=== PATIENT | male | born 1960 | race Caucasian/White ===

== ENCOUNTER 2019-08-17 10:16 | Observation (INO) ==
[2019-08-17] MEDS ORDERED: IOPAMIDOL 100 ML BOTTLE IV ONE (10:17)
--- NOTE | 2019-08-17 10:36 | Emergency Department Note ---
Neuro HPI - General Chief Complaint: Neuro Symptoms/Deficit Stated Complaint: vision change and memory problem Time Seen by Provider: 08/17/19 10:35 Source: patient Mode of arrival: ambulatory Limitations: no limitations - History of Present Illness HPI Narrative: Patient arrives by private car brought by his significant other December. He describes at 9:00 having a kaleidoscope type of vision and she noted slurred speech. He called and said something was wrong. 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 Also had mentioned to nursing staff a headache. In the emergency room blood sugar 184 (no history of diabetes), slow speech. No focal deficits noted. He describe double vision. All though his light reflex was symmetric. Code stroke called at 10:33 AM. On Anticoagulants: No - Related Data Home Medications: Home Medications Medication Instructions Recorded Confirmed Diltiazem [Cardizem] 0 mg PO DAILY 08/17/19 08/17/19 Pravastatin [Pravachol] 40 mg PO DAILY 08/17/19 08/17/19 Allergies/Adverse Reactions: Allergies Allergy/AdvReac Type Severity Reaction Status Date / Time Penicillins Allergy Severe Difficulty Verified 05/03/19 10:08 Breathing Past Medical History - Past Medical History Medical history: Reports: arthritis, hypertension, kidney stones - Social History smoking status: Never smoker Physical Exam Limitations: no limitations General appearance: alert, in no apparent distress Head: atraumatic, normocephalic Eye: Present: normal appearance, PERRL, EOMI. Absent: scleral icterus, conjunctival injection ENT: Present: normal oropharynx, mucous membranes moist Neck: Present: trachea midline. Absent: lymphadenopathy, thyromegaly Chest: Present: symmetric chest wall rise Respiratory: Present: normal lung sounds bilaterally. Absent: respiratory distress, wheezes, stridor, accessory muscle use, prolonged expiratory phase Cardiovascular: Present: regular rate, normal rhythm. Absent: systolic murmur, diastolic murmur Abdominal: Present: soft. Absent: distention, tenderness, guarding, rebound, rigidity, organomegaly, mass Extremities: Absent: pedal edema, pretibial edema, calf tenderness Back: Absent: CVA tenderness (R), CVA tenderness (L), spinous process tenderness Neurological: Present: alert, oriented X3 Patient oriented to: Present: person, place, time Speech: Present: fluid speech, slurred, other (Initially was slow and slurred but this improved and 12 minutes after he came back from CT scan and seemed to actually resolve later.) Cranial nerves: EOM function (II, III, IV, ): Normal, facial sensation (V): Normal, tongue deviation (XII): Normal Motor strength - LUE: 5/5 Motor strength - RUE: 5/5 Motor strength - LLE: 5/5 Motor strength - RLE: 5/5 Sensory exam upper extremity: Normal: light touch, pin prick Sensory exam lower extremity: Normal: light touch, pin prick Coma Scale Eye Opening: Spontaneous Coma Scale Motor Response: Obeys Commands Coma Scale Verbal Response: Oriented Coma Scale Total: 15 Psychiatric: Present: normal affect, normal mood Skin: Present: warm, dry Course Vital Signs Temperature 96.9 F L 08/17/19 10:21 Respiratory Rate 20 08/17/19 10:21 Blood Pressure 147/110 08/17/19 10:21 Pulse Oximetry (%) 100 08/17/19 10:21 Temperature 96.9 F L 08/17/19 10:21 Pulse Rate 65 08/17/19 11:02 Respiratory Rate 13 08/17/19 11:46 Blood Pressure 130/88 08/17/19 11:46 Pulse Oximetry (%) 100 08/17/19 11:02 Neuro Symptoms/Deficit - MDM Narrative Medical decision making narrative: 10:33 AM - headed to CT for initial code stroke protocol. Blood sugar 184. INR was 1.0. 10:41 AM - EKG was normal sinus rhythm with probable LVH. Had a few bigeminal PVC runs. 10:50 AM - I spoke with Dr. Glass, stroke radiologist, who agrees with CT Callie of the head neck and that is not a TPA candidate and that he should have the following interventions: If meets criteria admission and MRI, echo. Clopidogrel 300 mg loading dose followed by daily 75 mg for 3 weeks. Also on aspirin 81 mg daily. After 3 weeks stop clopidogrel/Plavix and continue the aspirin. 11:30 AM - at approximately or around this time patient's symptoms seem to completely improve or resolve and he felt well. ABCD 2 score is 4 based on age, elevated blood pressure, speech, and duration of symptoms which warrants hospital stay. Patient is willing. 12:05 PM approximately - spoke with Dr. Santacruz who is willing to accept this pa tient if MRI is available which apparently it has been confirmed. - Lab Data Lab results reviewed: Yes I reviewed the patient's lab results. Result diagrams: 08/17/19 10:45 08/17/19 10:45 Lab Results 08/17/19 08/17/19 08/17/19 Range/Units 10:45 10:45 10:45 WBC 6.1 (4.5-11.0) K/mcL RBC 4.80 (4.50-5.90) M/mcL Hgb 14.3 (13.5-16.5) g/dL Hct 43.2 (41.0-55.0) % POC Hct 42.0 (41.0-55.0) % MCV 90.0 (80.0-100.0) fL MCH 29.8 (26.0-34.0) pg MCHC 33.1 (31.0-36.0) g/dL RDW 12.9 (11.5-14.5) % Plt Count 212 (140-440) K/mcL MPV 8.1 (7.4-10.4) fL Gran % 53.1 (38.0-78.0) % Lymph % (Auto) 31.9 (15.5-49.0) % [place] % (Auto) 7.4 (1.0-12.0) % Eos % (Auto) 6.9 (0.0-7.0) % Baso % (Auto) 0.7 (0.0-2.0) % Gran # 3.2 (1.8-8.0) K/mcL Lymph # (Auto) 2.0 (1.5-4.8) K/mcL [place] # (Auto) 0.5 (0.1-0.9) K/mcL Eos # (Auto) 0.4 (0.0-0.7) K/mcL Baso # (Auto) 0 (0.0-0.3) K/mcL POC PT 11.8 L (11.9-14.5) sec POC INR 1.0 (0.9-1.2) APTT 29 (20-37) sec POC Sodium 140 (133-145) mmol/L Sodium 141 (133-145) mmol/L POC Potassium 3.6 (3.3-5.1) mmol/L Potassium 3.9 (3.3-5.1) mmol/L POC Chloride 104 (96-108) mmol/L Chloride 104 (96-108) mmol/L Carbon Dioxide 22 (22-30) mmol/L POC Total CO2 24 (22-30) mmol/L Anion Gap 15.0 (8-16) POC BUN 11 (8-23) mg/dl BUN 12 (8-23) mg/dl Creatinine 1.2 (0.7-1.2) mg/dl POC Creatinine 1.2 (0.7-1.2) mg/dl GFR Calculation 65 Glucose 152 H (70-105) mg/dL POC Glucose 148 H (70-105) mg/dL Calcium 9.3 (8.6-10.4) mg/dl POC WB Ioniz Calcium 1.18 (1.16-1.32) mmol/L Total Bilirubin 0.5 (0.0-1.0) mg/dL AST 22 (0-37) U/l ALT 30 (0-40) U/l Alkaline Phosphatase 82 (39-117) U/L Troponin T (0-0.03) ng/ml Total Protein 7.4 (5.9-8.4) gm/dL Albumin 4.3 (3.2-5.2) gm/dL Globulin 3.1 (2.2-3.7) gm/dL Albumin/Globulin Ratio 1.4 (1.0-2.3) 08/17/19 Range/Units 10:45 WBC (4.5-11.0) K/mcL RBC (4.50-5.90) M/mcL Hgb (13.5-16.5) g/dL Hct (41.0-55.0) % POC Hct (41.0-55.0) % MCV (80.0-100.0) fL MCH (26.0-34.0) pg MCHC (31.0-36.0) g/dL RDW (11.5-14.5) % Plt Count (140-440) K/mcL MPV (7.4-10.4) fL Gran % (38.0-78.0) % Lymph % (Auto) (15.5-49.0) % [place] % (Auto) (1.0-12.0) % Eos % (Auto) (0.0-7.0) % Baso % (Auto) (0.0-2.0) % Gran # (1.8-8.0) K/mcL Lymph # (Auto) (1.5-4.8) K/mcL [place] # (Auto) (0.1-0.9) K/mcL Eos # (Auto) (0.0-0.7) K/mcL Baso # (Auto) (0.0-0.3) K/mcL POC PT (11.9-14.5) sec POC INR (0.9-1.2) APTT (20-37) sec POC Sodium (133-145) mmol/L Sodium (133-145) mmol/L POC Potassium (3.3-5.1) mmol/L Potassium (3.3-5.1) mmol/L POC Chloride (96-108) mmol/L Chloride (96-108) mmol/L Carbon Dioxide (22-30) mmol/L POC Total CO2 (22-30) mmol/L Anion Gap (8-16) POC BUN (8-23) mg/dl BUN (8-23) mg/dl Creatinine (0.7-1.2) mg/dl POC Creatinine (0.7-1.2) mg/dl GFR Calculation Glucose (70-105) mg/dL POC Glucose (70-105) mg/dL Calcium (8.6-10.4) mg/dl POC WB Ioniz Calcium (1.16-1.32) mmol/L Total Bilirubin (0.0-1.0) mg/dL AST (0-37) U/l ALT (0-40) U/l Alkaline Phosphatase (39-117) U/L Troponin T < 0.01 (0-0.03) ng/ml Total Protein (5.9-8.4) gm/dL Albumin (3.2-5.2) gm/dL Globulin (2.2-3.7) gm/dL Albumin/Globulin Ratio (1.0-2.3) - Radiology Data Radiology results reviewed: Yes I reviewed the patient's radiology results. - EKG Data EKG attestation: Yes There are no EKG findings of acute coronary syndrome, Yes This EKG will be read by conveyor tender Disposition Pt seen by TILT TRAY DRIVER/PA only: No Clinical Impression: TIA (transient ischemic attack), LVH (left ventricular hypertrophy), Hypertension, essential, History of DVT (deep vein thrombosis) Hyperlipidemia Qualifiers: Hyperlipidemia type: unspecified Qualified Code(s): E78.5 - Hyperlipidemia, unspecified Summary: See medical decision-making above. Being admitted for additional work-up of his TIA and observation. Disposition: Xfer As Inpt ([facility]) Condition: Fair Referrals: Antonio Collier MD [Primary Care Provider] -
[2019-08-17] MEDS ORDERED: ALTEPLASE 100 MG/100 ML VIAL IV ONE (10:37)
[2019-08-17 10:54] LABS: POC Blood Urea Nitrogen 11 mg/dl (8-23); POC CO2 24 mmol/L (22-30); POC Calcium, Ionized 1.18 mmol/L (1.16-1.32); POC Chloride 104 mmol/L (96-108); POC Creatinine 1.2 mg/dl (0.7-1.2); POC Glucose, Random 148 mg/dL (70-105); POC Potassium 3.6 mmol/L (3.3-5.1); POC Sodium 140 mmol/L (133-145)
[2019-08-17 10:55] LABS: POC Pro Time 11.8 sec (11.9-14.5)
[2019-08-17] MEDS ORDERED: CLOPIDOGREL 300 MG TABLET PO ONE (10:56)
[2019-08-17] MEDS ORDERED: ASPIRIN 81 MG TAB.CHEW CHEWED ONE (10:57)
[2019-08-17 11:16] LABS: Basophils # (Auto) 0 K/mcL (0.0-0.3); Basophils % (Auto) 0.7 % (0.0-2.0); Eosinophils # (Auto) 0.4 K/mcL (0.0-0.7); Eosinophils % (Auto) 6.9 % (0.0-7.0); Granulocytes % (Auto) 53.1 % (38.0-78.0); Hematocrit 43.2 % (41.0-55.0); Hemoglobin 14.3 g/dL (13.5-16.5); Lymphocytes % (Auto) 31.9 % (15.5-49.0); Mean Corpuscular HGB Conc 33.1 g/dL (31.0-36.0); Mean Platelet Volume 8.1 fL (7.4-10.4); Monocytes # (Auto) 0.5 K/mcL (0.1-0.9); Monocytes % (Auto) 7.4 % (1.0-12.0); Platelet Count 212 K/mcL (140-440); Red Cell Distribution Width 12.9 % (11.5-14.5); WBC 6.1 K/mcL (4.5-11.0)
[2019-08-17 11:36] LABS: ALT/SGPT 30 U/l (0-40); AST/SGOT 22 U/l (0-37); Albumin 4.3 gm/dL (3.2-5.2); Albumin/Globulin Ratio 1.4 (1.0-2.3); Alkaline Phosphatase 82 U/L (39-117); Bilirubin,Total 0.5 mg/dL (0.0-1.0); Blood Urea Nitrogen 12 mg/dl (8-23); Calcium 9.3 mg/dl (8.6-10.4); Carbon Dioxide 22 mmol/L (22-30); Chloride 104 mmol/L (96-108); Globulin 3.1 gm/dL (2.2-3.7); Glomerular Filtration Rate 65; Glucose 152 mg/dL (70-105)
--- NOTE | 2019-08-17 12:21 | Internal Med History&Physical ---
Medical - H&P: [facility] Patient information: Note initiated : 08/17/19 at 12:21 pm Service Date, if different from initiated Date: [] Patient: Nii Holloway a 59 y/o M admitted on for vision change and memory problem. Chief Complaint: [] Chief complaint: Sudden onset vision change/difficulty speaking History of present illness: Mr. Holloway is a 59 year old M with a past history of hyperten diana/hyperlipidemia who was otherwise for his baseline state of health was in his pickup around 9 AM and he noticed sudden vision changes with abnormal field of vision which he describes as kaleidoscopic. He was unable to talk right and noticed weakness. Realizing something was wrong he called his and was brought in to the ER. He denies thunderclap headache. He endorses to similar episode of vision changes 3 days ago however he did not seek medical consultation. He has been symptom-free over the last 3 days. During this episode he denied lightheadedness chest pain neck pain but felt sensation of disequilibrium as if he was seasick. He denies associated fever, nausea, diarrhea, unilateral weakness or sensory changes. He further denies changes in medications, incontinence, recent spinal manipulation or heavy weightlifting. Initial work-up in the ER was unremarkable CT angiogram head neck along with CT head. Stroke neurology was consulted and patient was started on aspirin Plavix/statin. Hospitalist service was consulted for continuation of stroke work-up At the time of evaluation patient is accompanied with his December. He is able to answer most the question provide history. His symptoms have abated. He is back to near baseline from initial NIH score of 3->0 Review of systems A 10 point review of system was performed and is negative except was discussed above Medical - H&P: PM Medical history: Hypertension hyperlipidemia Pertinent family history: Premature coronary disease. 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 [place] Medical - H&P: Meds Home Medications Medication Instructions Recorded Confirmed Type Diltiazem [Cardizem] 120 mg PO DAILY 08/17/19 08/17/19 History Pravastatin [Pravachol] 40 mg PO DAILY 08/17/19 08/17/19 History Allergies Allergy/AdvReac Type Severity Reaction Status Date / Time Penicillins Allergy Severe Difficulty Verified 05/03/19 10:08 Breathing Medical - H&P: Exam - Constitutional Vitals: Temp Pulse Resp BP Pulse Ox 96.9 F L 65 13 130/88 100 08/17/19 10:21 08/17/19 11:02 08/17/19 11:46 08/17/19 11:46 08/17/19 11:02 General appearance: no acute distress Exam: Alert oriented Head normocephalic No facial asymmetry Oral cavity dry No ear nose discharge Neck no lymphadenopathy S1S2 regular, bradycardia Chest clear to auscultation Abdomen soft nontender Lower extremity no lymphedema Skin no suspicious lesion Psych alert cooperative neuro normal higher function, no facial droop, normal cranial nerves Symmetrical strength and sensation Medical - H&P: Reslt - Labs CBC & Chem 7: 08/17/19 10:45 08/18/19 04:20 Labs: Short CBC 08/17/19 Range/Units 10:45 WBC 6.1 (4.5-11.0) K/mcL Hgb 14.3 (13.5-16.5) g/dL Hct 43.2 (41.0-55.0) % Plt Count 212 (140-440) K/mcL BMP 08/17/19 10:45 Sodium 141 Potassium 3.9 Chloride 104 Carbon Dioxide 22 BUN 12 Creatinine 1.2 Glucose 152 H Calcium 9.3 Cardiac Enzymes 08/17/19 Range/Units 10:45 Troponin T < 0.01 (0-0.03) ng/ml Liver Function 08/17/19 Range/Units 10:45 Total Bilirubin 0.5 (0.0-1.0) mg/dL AST 22 (0-37) U/l ALT 30 (0-40) U/l Alkaline Phosphatase 82 (39-117) U/L Albumin 4.3 (3.2-5.2) gm/dL Medical - H&P: A/P (1) TIA (transient ischemic attack) Current visit: Yes Status: Acute * TIA with high probability posterior circulation ischemic CVA, MRI/echocardiogram/aspirin statin/Plavix as per neurologist. Telemetry monitoring/maintain permissive hypertension. Physical therapy * History of hypertension continue diltiazem. Maintain permissive hypertension for 24 hours * Hyperlipidemia continue statin * Full code * Prophylaxis heparin Plan * Observation admit * Stroke work-up-MRI/echo * Physical therapy * bowel protocol * Maintain permissive hypertension
[2019-08-17 12:48] LABS: Appearance,Urine CLEAR; Bilirubin,Urine NEG (NEG); Color,Urine STRAW; Culture Indicated,Urine NO; Glucose,Urine (UA) NEGATIVE (NEG); Ketones,Urine NEG (NEG); Leukocyte Esterase,Urine NEG /uL (NEG); Nitrate,Urine NEG (NEG); Protein,Urine NEG (NEG); Specific Gravity,Urine 1.043 (1.000-1.035); Urine Blood NEG mg/dL (<0.03); Urobilinogen,Urine NEG (NEG)
[2019-08-17] MEDS ORDERED: POTASSIUM CHLORIDE 20 MEQ PACKET PO PRN (12:50)
[2019-08-17] MEDS ORDERED: ACETAMINOPHEN 325 MG TABLET PO PRN (12:50)
[2019-08-17] MEDS ORDERED: POLYETHYLENE GLYCOL 3350 17 GM PACKET PO PRN (12:50)
[2019-08-17] MEDS ORDERED: BISACODYL 10 MG SUPP.RECT PR PRN (12:50)
[2019-08-17] MEDS ORDERED: ONDANSETRON 4 MG/2 ML VIAL IV PRN (12:50)
[2019-08-17] MEDS ORDERED: MAGNESIUM SULFATE 2 GM/50 ML BAG IV PRN (12:50)
[2019-08-17] MEDS ORDERED: ACETAMINOPHEN 650 MG/65 ML BOTTLE IV PRN (12:50)
[2019-08-17] MEDS ORDERED: ONDANSETRON 4 MG ODT TABLET SL PRN (12:50)
[2019-08-17] MEDS ORDERED: MELATONIN 3 MG TABLET PO PRN (12:50)
--- NOTE | 2019-08-17 15:45 | Cat Scan Report ---
CLINICAL INFORMATION: Code stroke COMPARISON: None. TECHNIQUE: 2.5 mm helical slices were obtained in the skull base to vertex. Following reconstruction, axial reformatted images were reviewed at bone and parenchymal windows. The exam was performed using radiation dose optimization techniques including, but not limited to, automated exposure control, adjustment of the mA and/or kV according to patient size and use of iterative reconstruction technique. FINDINGS: The ventricles, sulci, fissures, and cisterns are normal in size and configuration for age. No extra-axial fluid collections are identified. The cerebrum, brainstem and cerebellum are unremarkable. There is no evidence of hemorrhage, mass effect, or edema. Bone windows show no osseous abnormality. IMPRESSION: Normal head CT without contrast for age. Interpreted and Authenticated by: Adrian Kuhn 08/17/19
--- NOTE | 2019-08-17 15:52 | Cat Scan Report ---
CLINICAL INFORMATION: Visual changes and decreased memory. Evaluate for CVA COMPARISON: None. TECHNIQUE: 80 cc of Isovue-370 were injected intravenously , and using SmartPrep to maximize cerebral arterial opacification, 0.625 mm helical slices were obtained from the skull base through the cerebral vertex. Following reconstruction , sagittal, coronal and axial reformatted images were processed and reviewed at multiple windows and levels. 3D volume rendered and MIP images were acquired at a independent workstation. The exam was performed using radiation dose optimization techniques including, but not limited to, automated exposure control, adjustment of the mA and/or kV according to patient size and use of iterative reconstruction technique. FINDINGS: The intracranial internal carotid, vertebral, basilar, anterior, middle and posterior cerebral arteries and their branches are well-opacified and normal in contour and caliber without stenosis, occlusion or other abnormality. The superficial and deep cerebral veins and the venous sinuses are patent. IMPRESSION: Normal Interpreted and Authenticated by: Adrian Kuhn 08/17/19
--- NOTE | 2019-08-17 16:03 | Cat Scan Report ---
CLINICAL INFORMATION: Acute decreased vision and memory loss - evaluate for CVA COMPARISON: None. TECHNIQUE: 80 cc of Isovue-370 were injected intravenously, and using SmartPrep to maximize arterial opacification, 0.625 mm helical slices were obtained from the thoracic aortic arch through the [place]. Following reconstruction, 2.5mm sagittal, coronal and axial reformatted images were processed and reviewed at standard and bone algorithm/window. 3-D volume rendered, CPR and MIP images were processed using a [employer] work station.The exam was performed using radiation dose optimization techniques including, but not limited to, automated exposure control, adjustment of the mA and/or kV according to patient size and use of iterative reconstruction technique. FINDINGS: The thoracic aortic arch is normal in contour and caliber. Aortic branching is dimensional. The brachiocephalic, both subclavian, both vertebral, common, internal and external carotid arteries are widely patent. A 17 x 13 mm low-attenuation lesion dominates the mid/ inferior right thyroid lobe. There is also a 15 mm low-attenuation lesion either arising exophytically is posterior to the mid right thyroid lobe. Suggest thyroid ultrasound. Soft tissues and neck are otherwise normal. At C5-6 and C6-7, broad disc spur complexes result in moderate central canal and severe bilateral lateral recess /IV foraminal narrowing with impingement of the exiting C6 and C7 nerve roots. At C4-5, a left disc spur spur complex severely narrows the left lateral recess IV foraminal impinging the exiting left C5 nerve root. IMPRESSION: 1. Thoracic aortic arch, both subclavian, all carotid and vertebral arteries are widely patent. 2. 17 mm low-attenuation lesion in the inferior right thyroid lobe. 15 mm lesion either posterior to or arising exophytically from the mid right thyroid lobe. Suggest thyroid ultrasound. 3. Severe left C4-5 and bilateral C5-6 and C6-7 IV foraminal /lateral recess narrowing due to disc spur complexes and facet hypertrophy. Please correlate with upper extremity radiculopathy Interpreted and Authenticated by: Adrian Kuhn 08/17/19
[2019-08-17] MEDS: 0.9 % SODIUM CHLORIDE 10 ML SYRINGE IV SCH ×2 (18:08→21:07)
[2019-08-17] MEDS: MUPIROCIN OINT 2% 22GM NARES SCH (20:56)
[2019-08-17] MEDS: CYANOCOBALAMIN (VITAMIN B-12) 500 MCG TABLET PO SCH (20:57)
[2019-08-17] MEDS: HEPARIN 5,000 UNIT/ML VIAL SQ SCH (20:58)
[2019-08-17] MEDS ORDERED: SENNOSIDES/DOCUSATE SODIUM 1 TAB TABLET PO SCH (21:00)
[2019-08-17] MEDS ORDERED: ATORVASTATIN 20 MG TABLET PO SCH (21:00)
[2019-08-17] MEDS: DOCUSATE SODIUM 100 MG CAPSULE PO SCH (21:05)
[2019-08-18] MEDS: 0.9 % SODIUM CHLORIDE 10 ML SYRINGE IV SCH ×2 (04:03→15:22)
[2019-08-18 06:05] LABS: ALT/SGPT 26 U/l (0-40); AST/SGOT 20 U/l (0-37); Albumin 3.9 gm/dL (3.2-5.2); Albumin/Globulin Ratio 1.3 (1.0-2.3); Alkaline Phosphatase 78 U/L (39-117); Bilirubin,Direct < 0.2 mg/dL (0.0-0.3); Bilirubin,Total 0.4 mg/dL (0.0-1.0); Blood Urea Nitrogen 12 mg/dl (8-23); Calcium 9.2 mg/dl (8.6-10.4); Carbon Dioxide 25 mmol/L (22-30); Chloride 102 mmol/L (96-108); Globulin 2.9 gm/dL (2.2-3.7); Glomerular Filtration Rate 65; Glucose 106 mg/dL (70-105); Lactate Dehydrogenase 167 U/L (94-250); Phosphorous 2.9 mg/dL (2.7-4.5); Triglycerides 164 mg/dl (<150); Uric Acid 6.6 mg/dL (2.5-8.0)
[2019-08-18] MEDS: MUPIROCIN OINT 2% 22GM NARES SCH (08:10)
[2019-08-18] MEDS: CYANOCOBALAMIN (VITAMIN B-12) 500 MCG TABLET PO SCH (08:12)
[2019-08-18] MEDS: HEPARIN 5,000 UNIT/ML VIAL SQ SCH (08:13)
[2019-08-18] MEDS: DOCUSATE SODIUM 100 MG CAPSULE PO SCH (08:13)
[2019-08-18] MEDS ORDERED: FOLIC ACID 1 MG TABLET PO SCH (09:00)
[2019-08-18] MEDS ORDERED: CLOPIDOGREL 75 MG TABLET PO SCH (09:00)
[2019-08-18] MEDS ORDERED: THIAMINE 100 MG TABLET PO SCH (09:00)
--- NOTE | 2019-08-18 10:34 | Discharge Summary ---
<Fan Fine - Last Filed: 08/18/19 15:10> Medical - DS: Prov Patient information: Note initiated : 08/18/19 at 3:10 pm Service Date, if different from initiated Date: [] Patient: Nii Holloway 59 y/o M admitted on 08/17/19 for vision change and memory problem. Chief Complaint: [] Date of admission: 08/17/19 12:49 Primary care physician: Antonio Collier Consults: 08/17/19 Consult to Physician [CONS] Stat Comment: Consulting Provider: Edwin Singletary Reason For Exam: Physician to Consult Medical - DS: Meds - Discharge Medications Prescriptions: Aspirin [Pa Chewable Aspirin] 81 mg PO DAILY #30 tab.chew Prescription Printed Clopidogrel Bisulfate [Plavix] 75 mg PO DAILY #30 tab Prescription Printed Active and Home Medications: Home Medications Diltiazem [Cardizem] 120 mg PO DAILY 08/17/19 [History Confirmed 08/17/19 Last Taken 08/17/19] Pravastatin [Pravachol] 40 mg PO DAILY 08/17/19 [History Confirmed 08/17/19 Last Taken 08/16/19 21:00] Aspirin [Pa Chewable Aspirin] 81 mg PO DAILY #30 tab.chew 08/18/19 [Rx Last Taken Unknown] Clopidogrel Bisulfate [Plavix] 75 mg PO DAILY #30 tab 08/18/19 [Rx Last Taken Unknown] Medical - DS: Hosp Hospital Course: Discharge diagnosis * TIA versus posterior circulation ischemic CVA-negative neuroimaging during CT head/CT angiogram head neck. Echocardiogram no evidence of ASD or L AA/LV thrombus. No telemetry events including A. fib except for PVCs/intermittent bradycardia. Continue dual antiplatelet as per stroke neurologist recommendations to ER physician during tele-stroke consult. Patient will follow-up with neurology as outpatient in 2 weeks. Recommend follow-up with primary care physician for continued optimization of hypertension/primary conditions * History of hypertension continue home dose diltiazem. Follow-up with Dr. Collier primary care physician in 1 to 2 weeks * Hyperlipidemia continue statin Brief hospital course Mr. Holloway is a 59 year old M with a past history of hypertension/hyperlipidemia who was otherwise for his baseline state of health was in his pickup around 9 AM and he noticed sudden vision changes with abnormal field of vision which he describes as kaleidoscopic. He was unable to talk right and noticed weakness. Realizing something was wrong he called his and was brought in to the ER. He denies thunderclap headache. He endorses to similar episode of vision changes 3 days ago however he did not seek medical consultation. He has been symptom-free over the last 3 days. During this episode he denied lightheadedness chest pain neck pain but felt sensation of disequilibrium as if he was seasick. He denies associated fever, nausea, diarrhea, unilateral weakness or sensory changes. He further denies changes in medications, incontinence, recent spinal manipulation or heavy weightlifting. Initial work-up in the ER was unremarkable CT angiogram head neck along with CT head. Stroke neurology was consulted and patient was started on aspirin Plavix/statin. Hospitalist service was consulted for continuation of stroke work-up At the time of evaluation patient is accompanied with his December. He is able to answer most the question provide history. His symptoms have abated. He is back to near baseline from initial NIH score of 3->0 08/18-no overnight events. No concerns per staff. No further neurological changes or telemetry events except for occasional PVCs and bradycardic between 50 and 60s. Echocardiogram no evidence of ASD/LV or LA thrombus. Patient will be discharged following MRI results. Continue dual antiplatelet along with statin as per neurology recommendations. Schedule outpatient neurology follow- up on discharge in 1 to 2 weeks. MRI with no acute infarct. Noted mild atrophy and chronic ischemic changes. - Time Spent with Patient Total time spent providing and/or coordinating discharge services: Medical - DS: Exam - Constitutional Vitals: Vital Signs Temp Pulse Resp BP Pulse Ox 08/18/19 14:01 59 L 19 120/79 100 08/18/19 13:01 74 20 136/90 96 08/18/19 12:01 97.5 F 73 21 128/94 96 08/18/19 11:25 77 14 139/87 98 08/18/19 10:01 14 124/97 08/18/19 09:01 14 129/95 08/18/19 08:01 97.5 F 43 L 14 109/82 96 08/18/19 07:01 49 L 15 105/81 94 08/18/19 06:01 51 L 15 121/74 98 08/18/19 05:01 46 L 16 105/75 98 08/18/19 04:30 97.9 F 08/18/19 04:01 55 L 12 117/80 98 08/18/19 03:07 15 96 08/18/19 03:01 57 L 15 122/86 96 08/18/19 02:01 52 L 17 123/76 95 08/18/19 01:01 55 L 16 128/76 97 08/18/19 00:13 97.7 F 08/18/19 00:01 59 L 17 115/82 97 08/17/19 23:01 52 L 17 125/84 96 08/17/19 22:38 58 L 16 98 08/17/19 22:01 53 L 16 131/85 98 08/17/19 21:01 63 14 132/88 99 08/17/19 20:01 61 17 125/99 99 08/17/19 19:32 17 99 08/17/19 19:29 98.8 F 08/17/19 19:01 19 143/101 99 08/17/19 18:32 18 08/17/19 18:01 20 158/109 08/17/19 17:01 13 130/90 08/17/19 16:34 18 08/17/19 16:02 7 L 138/93 08/17/19 15:46 17 123/80 08/17/19 15:31 16 124/81 08/17/19 15:16 17 148/101 Intake and Output 08/18/19 08/18/19 08/18/19 05:59 13:59 21:59 Intake Total 50 240 Output Total 400 Balance -350 240 Intake: Oral 50 240 Output: Void Amount 400 Other: Meal Breakfast Percent of Meal Consumed 100% Feeding Ability Independent Urine Appearance Clear Urine Color Bright Yellow Medical - DS: Data Labs on day of discharge: Labs from last 24 hours 08/18/19 04:20 Sodium 139 Potassium 4.1 Chloride 102 Carbon Dioxide 25 Anion Gap 12.0 BUN 12 Creatinine 1.2 GFR Calculation 65 Glucose 106 H Uric Acid 6.6 Calcium 9.2 Phosphorus 2.9 Magnesium 2.1 Total Bilirubin 0.4 Direct Bilirubin < 0.2 GGT 57 AST 20 ALT 26 Alkaline Phosphatase 78 Lactate Dehydrogenase 167 Total Protein 6.8 Albumin 3.9 Globulin 2.9 Albumin/Globulin Ratio 1.3 Triglycerides 164 H Medical - DS: A/P - Patient/Caregiver Discharge Instructions Additional Instructions: Follow-up neurology in 1 to 2 weeks as outpatient Follow-up primary care physician Dr. Collier and 1 week Continue dual antiplatelets as per tele stroke neurologist recommendations along with statin Return to ER if vision changes/weakness or neurological changes noted Prescriptions: Aspirin [Pa Chewable Aspirin] 81 mg PO DAILY #30 tab.chew Prescription Printed Clopidogrel Bisulfate [Plavix] 75 mg PO DAILY #30 tab Prescription Printed - Follow up Plan Follow up with: Antonio Collier MD [Primary Care Provider] - Disposition: Home, Self-Care Care Plan Goals: This discharge packet is provided to you to help keep you informed about your care. We want to ensure you get everything you need when you go home. You will also be receiving a call from us in a few days to follow up with you and see how you are doing since your discharge. This gives us a chance to listen to any concerns you maybe experiencing since you were discharged or any additional needs you may have, as well as providing us feedback on your care experience. We strive to always provide excellent care and thank you for your feedback and for choosing [facility]. Prognosis: Fair <Edwin Singletary - Last Filed: 08/20/19 17:10> Medical - DS: Prov Patient information: Note initiated : 08/18/19 at 10:31 am Service Date, if different from initiated Date: [] Patient: Nii Holloway 59 y/o M admitted on 08/17/19 for vision change and memory problem. Chief Complaint: [] Date of admission: 08/17/19 12:49 Discharge date: 08/18/19 Primary care physician: Antonio Collier Consults: 08/17/19 Consult to Physician [CONS] Stat Comment: Consulting Provider: Edwin Singletary Reason For Exam: Physician to Consult Medical - DS: Meds - Discharge Medications Active and Home Medications: Home Medications Diltiazem [Cardizem] 120 mg PO DAILY 08/17/19 [History Confirmed 08/17/19 Last Taken 08/17/19] Pravastatin [Pravachol] 40 mg PO DAILY 08/17/19 [History Confirmed 08/17/19 Last Taken 08/16/19 21:00] Aspirin [Pa Chewable Aspirin] 81 mg PO DAILY #30 tab.chew 08/18/19 [Rx Last Taken Unknown] Clopidogrel Bisulfate [Plavix] 75 mg PO DAILY #30 tab 08/18/19 [Rx Last Taken Unknown] Medical - DS: Hosp Discharge diagnosis: . - Time Spent with Patient Total time spent providing and/or coordinating discharge services: Greater than 30 minutes Medical - DS: Exam - Constitutional Vitals: Vital Signs Temp Pulse Resp BP BP Pulse Ox 08/18/19 10:01 14 124/97 08/18/19 09:01 14 129/95 08/18/19 08:01 97.5 F 43 L 14 109/82 96 08/18/19 07:01 49 L 15 105/81 94 08/18/19 06:01 51 L 15 121/74 98 08/18/19 05:01 46 L 16 105/75 98 08/18/19 04:30 97.9 F 08/18/19 04:01 55 L 12 117/80 98 08/18/19 03:07 15 96 08/18/19 03:01 57 L 15 122/86 96 08/18/19 02:01 52 L 17 123/76 95 08/18/19 01:01 55 L 16 128/76 97 08/18/19 00:13 97.7 F 08/18/19 00:01 59 L 17 115/82 97 08/17/19 23:01 52 L 17 125/84 96 08/17/19 22:38 58 L 16 98 08/17/19 22:01 53 L 16 131/85 98 08/17/19 21:01 63 14 132/88 99 08/17/19 20:01 61 17 125/99 99 08/17/19 19:32 17 99 08/17/19 19:29 98.8 F 08/17/19 19:01 19 143/101 99 08/17/19 18:32 18 08/17/19 18:01 20 158/109 08/17/19 17:01 13 130/90 08/17/19 16:34 18 08/17/19 16:02 7 L 138/93 08/17/19 15:46 17 123/80 08/17/19 15:31 16 124/81 08/17/19 15:16 17 148/101 08/17/19 15:01 13 151/111 08/17/19 14:31 24 H 144/100 08/17/19 14:17 142/96 08/17/19 14:01 129/83 08/17/19 13:46 12 133/79 08/17/19 13:31 13 158/120 08/17/19 13:16 13 147/108 08/17/19 13:04 51 L 15 152/100 88 L 08/17/19 13:02 96.9 F L 64 17 141/96 98 08/17/19 12:49 96.9 F L 17 150/102 98 08/17/19 12:45 64 17 141/96 98 08/17/19 12:32 54 L 8 L 141/96 100 08/17/19 12:16 54 L 15 141/93 99 08/17/19 12:01 56 L 14 138/100 100 08/17/19 11:46 13 130/88 08/17/19 11:32 11 L 123/92 08/17/19 11:24 15 145/109 08/17/19 11:02 65 16 140/101 100 08/17/19 10:54 61 9 L 156/95 100 08/17/19 10:51 61 14 156/95 100 08/17/19 10:32 61 11 L 155/99 100 Intake and Output 08/17/19 08/18/19 08/18/19 21:59 05:59 13:59 Intake Total 360 50 240 Output Total 1250 400 Balance -890 -350 240 Intake: Oral 360 50 240 Output: Urine Catheter Amount 450 Void Amount 800 400 Other: Meal Dinner Breakfast Percent of Meal Consumed 100% 100% Feeding Ability Independent Urine Appearance Clear Clear Urine Color Bright Yellow Bright Yellow Urine Odor Normal Weight 204 lb 12.8 oz Medical - DS: Data Labs on day of discharge: Labs from last 24 hours 08/18/19 08/17/19 08/17/19 04:20 12:04 10:45 WBC RBC Hgb Hct POC Hct MCV MCH MCHC RDW Plt Count MPV Gran % Lymph % (Auto) [place] % (Auto) Eos % (Auto) Baso % (Auto) Gran # Lymph # (Auto) [place] # (Auto) Eos # (Auto) Baso # (Auto) ESR 14 POC PT POC INR APTT POC Sodium Sodium 139 POC Potassium Potassium 4.1 POC Chloride Chloride 102 Carbon Dioxide 25 POC Total CO2 Anion Gap 12.0 POC BUN BUN 12 Creatinine 1.2 POC Creatinine GFR Calculation 65 Glucose 106 H POC Glucose Uric Acid 6.6 Calcium 9.2 POC WB Ioniz Calcium Phosphorus 2.9 Magnesium 2.1 Total Bilirubin 0.4 Direct Bilirubin < 0.2 GGT 57 AST 20 ALT 26 Alkaline Phosphatase 78 Lactate Dehydrogenase 167 Troponin T Total Protein 6.8 Albumin 3.9 Globulin 2.9 Albumin/Globulin Ratio 1.3 Triglycerides 164 H Urine Color Straw Urine Appearance Clear Urine pH 8.0 Ur Specific [place] 1.043 H Urine Protein Neg Urine Glucose (UA) Negative Urine Ketones Neg Urine Occult Blood Neg Urine Nitrate Neg Urine Bilirubin Neg Urine Urobilinogen Neg Ur Leukocyte Esterase Neg Ur Culture Indicated? No 08/17/19 08/17/19 08/17/19 10:45 10:45 10:45 WBC RBC Hgb Hct POC Hct 42.0 MCV MCH MCHC RDW Plt Count MPV Gran % Lymph % (Auto) [place] % (Auto) Eos % (Auto) Baso % (Auto) Gran # Lymph # (Auto) [place] # (Auto) Eos # (Auto) Baso # (Auto) ESR POC PT 11.8 L POC INR 1.0 APTT 29 POC Sodium 140 Sodium 141 POC Potassium 3.6 Potassium 3.9 POC Chloride 104 Chloride 104 Carbon Dioxide 22 POC Total CO2 24 Anion Gap 15.0 POC BUN 11 BUN 12 Creatinine 1.2 POC Creatinine 1.2 GFR Calculation 65 Glucose 152 H POC Glucose 148 H Uric Acid Calcium 9.3 POC WB Ioniz Calcium 1.18 Phosphorus Magnesium Total Bilirubin 0.5 Direct Bilirubin GGT AST 22 ALT 30 Alkaline Phosphatase 82 Lactate Dehydrogenase Troponin T < 0.01 Total Protein 7.4 Albumin 4.3 Globulin 3.1 Albumin/Globulin Ratio 1.4 Triglycerides Urine Color Urine Appearance Urine pH Ur Specific [place] Urine Protein Urine Glucose (UA) Urine Ketones Urine Occult Blood Urine Nitrate Urine Bilirubin Urine Urobilinogen Ur Leukocyte Esterase Ur Culture Indicated? 08/17/19 10:45 WBC 6.1 RBC 4.80 Hgb 14.3 Hct 43.2 POC Hct MCV 90.0 MCH 29.8 MCHC 33.1 RDW 12.9 Plt Count 212 MPV 8.1 Gran % 53.1 Lymph % (Auto) 31.9 [place] % (Auto) 7.4 Eos % (Auto) 6.9 Baso % (Auto) 0.7 Gran # 3.2 Lymph # (Auto) 2.0 [place] # (Auto) 0.5 Eos # (Auto) 0.4 Baso # (Auto) 0 ESR POC PT POC INR APTT POC Sodium Sodium POC Potassium Potassium POC Chloride Chloride Carbon Dioxide POC Total CO2 Anion Gap POC BUN BUN Creatinine POC Creatinine GFR Calculation Glucose POC Glucose Uric Acid Calcium POC WB Ioniz Calcium Phosphorus Magnesium Total Bilirubin Direct Bilirubin GGT AST ALT Alkaline Phosphatase Lactate Dehydrogenase Troponin T Total Protein Albumin Globulin Albumin/Globulin Ratio Triglycerides Urine Color Urine Appearance Urine pH Ur Specific [place] Urine Protein Urine Glucose (UA) Urine Ketones Urine Occult Blood Urine Nitrate Urine Bilirubin Urine Urobilinogen Ur Leukocyte Esterase Ur Culture Indicated? Medical - DS: A/P - Patient/Caregiver Discharge Instructions Activity: increase activity as tolerated Diet: Regular Diet - Problem Maintenance (1) TIA (transient ischemic attack) Status: Acute - Follow up Plan Rehab Potential: Fair I certify that the patient requires SNF services: No Overall status at discharge: patient is progressing back to baseline Medical - DS: Qual - VTE Deep Vein Thrombosis/Pulmonary Embolism Present on Admission: No
--- NOTE | 2019-08-18 15:03 | Magnetic Resonance Report ---
CLINICAL INFORMATION: Visual changes and decreased memory COMPARISON: Head CT 08/17/2019 TECHNIQUE:Sagittal T1 FLAIR, axial T1 FLAIR, T2 FLAIR propeller, T2 propeller, gradient, diffusion, ADC and coronal T2 weighted images were acquired. FINDINGS: The ventricles, sulci, fissures and cisterns show minimal symmetric enlargement compatible with mild age-related atrophy - no extra-axial fluid collection or mass appreciated. Scattered chronic ischemic foci in the deep cerebral white matter is typical for this age group. There are no regions of restricted diffusion suggest acute infarct. There is no mass effect hemorrhage or edema. The signal void within the intracerebral arteries, extra-axial cranial nerves, pituitary orbits are all normal. There is moderate mucosal thickening in all ethmoid air cells and minimal mucosal thickening in the frontal air cells. Maxillary and sphenoid air cells are clear IMPRESSION: Mild atrophy and scattered chronic ischemic changes in the cerebral white matter typical for age. No evidence of infarct Mild ethmoid and frontal sinusitis Interpreted and Authenticated by: Adrian Kuhn 08/18/19
== END 2019-08-18 15:45 | disposition home or self-care (01) ==
LOC: ED 10:16 → ICU 10:16
PROVIDERS: ADMIT Internal Medicine; ATTEND Internal Medicine